=== PATIENT | male | born 1990 | race Caucasian/White ===

== ENCOUNTER 2016-10-24 14:32 | Emergency (ER) | payer BC ==
[2016-10-24 15:17] LABS: BASOPHILS 0.4 % (0-2); HEMATOCRIT 47.8 % (42.0-54.0); HEMOGLOBIN 16.5 g/dL (13.5-17.5); LYMPHOCYTES 41.4 % (15-50); MCH 29.8 pg (26.0-34.0); MCHC 34.5 g/dL (31.0-37.0); MCV 86.4 fL (80.0-100.0); MEAN PLATELET VOLUME 10.4 fL (7.4-10.4); MONOCYTES 7.4 % (2-11); NEUTROPHILS 49.8 % (40-80); PLATELET COUNT 206 10x3/uL (130-400); RBC 5.53 10x6/uL (4.20-6.10); RDW 11.5 % (11.5-14.5); WBC 6.9 10x3/uL (4.8-10.8)
[2016-10-24 15:40] LABS: ALBUMIN 4.9 g/dL (3.4-5.0); ALKALINE PHOSPHATASE 59 U/L (46-116); ALT (SGPT) 22 U/L (10-68); BILIRUBIN - TOTAL 1.35 mg/dL (0.2-1.3); CALC OSMOLALITY 277 mosm/kg (275-300); CALCIUM 9.4 mg/dL (8.5-10.1); CARBON DIOXIDE 27.5 mmol/L (21.0-32.0); CHLORIDE - SERUM 103 mmol/L (98-107); CKMB 0.9 U/L (0.0-3.6); CREATINE KINASE 113 UL (21-232); GLUCOSE 93 mg/dL (74-106); HDL CHOLESTEROL 47 mg/dL (32-96); POTASSIUM - SERUM 3.6 mmol/L (3.5-5.1); PROTEIN - SERUM 7.6 g/dL (6.4-8.2); SODIUM 140 mmol/L (136-145); TRIGLYCERIDE 44 mg/dL (30-200); UREA NITROGEN 11 mg/dL (7-18)
[2016-10-24 15:58] LABS: CHOLESTEROL, TOTAL 140 mg/dL (0-200); CREATININE - SERUM 1.1 mg/dL (0.6-1.3); LDL CHOLESTEROL 85 mg/dL (0-100); LDL-HDL RATIO 1.8 ratio (1.5-3.5); eGFR NON AFRICAN AMERICAN 86 mL/min (90-120)
[2016-10-24 16:09] LABS: TROPONIN-I < 0.017 ng/mL (0.000-0.060)
== END 2016-10-24 16:54 | disposition home or self-care (01) ==
LOC: D.ER 14:32
PROVIDERS: Family Medicine
DX: R07.89 Other chest pain (principal); F17.200 Nicotine dependence, unspecified, uncomplicated

== ENCOUNTER 2019-04-14 00:59 | Emergency (ER) | payer BC ==
[~2019-04-14] VITALS: Ht 172.7 cm; Wt 90.7 kg
[2019-04-14 01:07] VITALS: Ht 172.7 cm; Wt 90.7 kg
[2019-04-14 01:22] LABS: APPEARANCE CLEAR (CLEAR); BILIRUBIN NEGATIVE (NEGATIVE); COLOR YELLOW (YELLOW); GLUCOSE NEGATIVE (NEGATIVE); KETONE NEGATIVE (NEGATIVE); NITRITE NEGATIVE (NEGATIVE); PROTEIN NEGATIVE (NEGATIVE); SPECIFIC GRAVITY 1.015 (1.005-1.020); UROBILINOGEN NORMAL (NORMAL)
[2019-04-14 01:23] LABS: BASOPHILS 0.3 % (0-2); EOSINOPHILS 1.9 % (0-7); HEMOGLOBIN 15.9 g/dL (13.5-17.5); IMMATURE GRANULOCYTES 0.2 % (0-5); LYMPHOCYTES 39.7 % (15-50); MCHC 34.6 g/dL (31.0-37.0); MCV 86.8 fL (80.0-100.0); MEAN PLATELET VOLUME 9.6 fL (7.4-10.4); MONOCYTES 6.7 % (2-11); NEUTROPHILS 51.2 % (40-80); PLATELET COUNT 243 10x3/uL (130-400); RDW 12.2 % (11.5-14.5); WBC 9.3 10x3/uL (4.8-10.8)
[2019-04-14 01:29] LABS: UDS - AMPHET NEGATIVE QUAL (NEGATIVE); UDS - BARB NEGATIVE QUAL (NEGATIVE); UDS - BENZO NEGATIVE QUAL (NEGATIVE); UDS - COCAINE NEGATIVE QUAL (NEGATIVE); UDS - OPIATE NEGATIVE QUAL (NEGATIVE); UDS - PCP NEGATIVE QUAL (NEGATIVE); UDS - THC NEGATIVE QUAL (NEGATIVE)
[2019-04-14 01:30] LABS: CALC OSMOLALITY 288 mosm/kg (275-300); CARBON DIOXIDE 26.7 mmol/L (21.0-32.0); CHLORIDE - SERUM 107 mmol/L (98-107); CREATININE - SERUM 0.9 mg/dL (0.6-1.3); GLUCOSE 108 mg/dL (74-106); POTASSIUM - SERUM 3.9 mmol/L (3.5-5.1); SODIUM 144 mmol/L (136-145); UREA NITROGEN 14 mg/dL (7-18); eGFR NON AFRICAN AMERICAN > 90 mL/min (90-120)
[2019-04-14 01:36] LABS: ALBUMIN 4.3 g/dL (3.4-5.0); ALKALINE PHOSPHATASE 62 U/L (46-116); ALT (SGPT) 33 U/L (10-68); BILIRUBIN - TOTAL 0.31 mg/dL (0.2-1.3); MAGNESIUM - SERUM 2.5 mg/dL (1.8-2.4); PROTEIN - SERUM 7.6 g/dL (6.4-8.2)
--- NOTE | 2019-04-14 02:01 | NUR ---
DR. LEWIS NOTIFIED AND SITTER ORDERED. SITTER AT BEDSIDE. NOTIFIED CHARGE NURSE AND ATTENDING IN REGARDS TO ASSESSMENT FINDINGS. RESOURCES GIVEN TO PT AND SAFETY PLAN INITIATED.
[2019-04-14 12:22] VITALS: BP 120/80
== END 2019-04-14 12:24 ==
LOC: D.ER 00:59
PROVIDERS: Family Medicine
DX: R45.851 Suicidal ideations (principal); F32.9 Major depressive disorder, single episode, unspecified